=== PATIENT | male | born 1955 | race Caucasian/White ===

== ENCOUNTER → 2018-03-29 | Outpatient (CLI) | payer OTHER | END | disposition home or self-care (01) | LOC: LABWHC1 16:31 | PROVIDERS: ATTEND Family Medicine | DX: Z13.88 Encounter for screening for disorder due to exposure to contaminants (principal) | CPT/HCPCS: 36415; 83655 ==

== ENCOUNTER 2019-01-02 08:44 | Day surgery (SDC) | payer MEDICARE, OTHER ==
[2018-12-31 12:53] VITALS: BMI 35.9
[~2019-01-02 08:44] MED LIST: LACTATED RINGERS 1,000 ML IV SCH; LIDOCAINE 1% 20 ML VIAL (10MG/ML) FOR IV START INTRADERMA PRN
[2019-01-02 09:05] VITALS: RESP 16; TEMP 97.8
[2019-01-02] MEDS ORDERED: fentaNYL (PF) 50 MCG/ML 2 ML AMP ONE (09:30)
[2019-01-02] MEDS ORDERED: PROPOFOL 10 MG/ML 20 ML VIAL IV ONE (09:30)
[2019-01-02] MEDS ORDERED: LIDOCAINE 1% INJ 10MG/ML (20 ML MDV) ONE (09:30)
[2019-01-02 10:13] VITALS: PULSE 64
--- NOTE | 2019-01-02 10:21 | P.PCN ---
Date of Procedure: 01/02/19 Procedure(s) Performed: Procedure: 1. Esophagogastroduodenoscopy and biopsy. 2. Total colonoscopy. Preoperative diagnosis: Dysphagia and screening for colon cancer. Postoperative diagnosis: 1. Small sliding hiatal hernia with no obvious esophagitis or complicated reflux disease. 2. Mild gastritis and duodenitis. 3. Diffuse colon diverticulosis with no evidence of acute diverticulitis, strictures, polyps or cancer. Preparation: HalfLytely prep. Sedation: Was provided by anesthesia. Brief clinical history: The patient is a 63-year-old male who is scheduled for this evaluation because of intermittent dysphagia over the years. No history of acid reflux. These episodes have not been progressive and occur once a months or so. No other alarm symptoms. In addition, he is scheduled for screening for colon cancer age being his risk factor. Procedure: With the patient on his left lateral decubitus position and after informed consent and adequate sedation, I passed a Olympus-GIF H190 video upper endoscope through the cricopharyngeus down the esophagus. GE junction was around 38 cm from the incisors and there was a small sliding hiatal hernia but no obvious esophagitis or complicated reflux disease. The endoscope was then passed into the stomach which was insufflated with air and inspected in detail including the retroflex view in the cardia. There was mottling and erythema in the antrum but no ulcers or erosions. Pyloric channel did not show any ulcers. Duodenal bulb, post bulbar area and descending duodenum showed some erythema and minimal friability but no ulcers or erosions. I obtained biopsies from the duodenum, antrum and esophagus then the endoscope was withdrawn and I proceeded to perform the colonoscopy. The perianal area did not show any fissures or fistulas. There were no masses felt on digital rectal examination. The Olympus CFH 190L video colonoscope was then inserted in the rectum in the usual fashion and advanced to the cecum. There were multiple diverticular orifices seen scattered along the length of the bowel more on the left side with no evidence of acute diverticulitis or strictures. The mucosa appeared healthy. No polyps or tumors were seen. I retroflexed the endoscope in the rectum before the endoscope was withdrawn. The patient tolerated the procedure well. Plan: The patient was reassured. Discussed dietary measures. Will await biopsy results and make further plans based on his course and biopsy results. I will be happy to see in the office if his symptoms persist and pursue the workup of dysphagia which could be related to a motility disorder. For colon cancer screening, I recommended repeat exam in 10 years. He will follow up with you as planned.
[2019-01-02 10:31] VITALS: BP 125/72
== END 2019-01-02 10:46 | disposition home or self-care (01) ==
LOC: ORWHC2ENDO 08:44
DX: Z12.11 Encounter for screening for malignant neoplasm of colon (principal); K29.50 Unspecified chronic gastritis without bleeding; K21.0 Gastro-esophageal reflux disease with esophagitis; K44.9 Diaphragmatic hernia without obstruction or gangrene; K57.30 Diverticulosis of large intestine without perforation or abscess without bleeding; K29.80 Duodenitis without bleeding; R13.10 Dysphagia, unspecified; Z80.0 Family history of malignant neoplasm of digestive organs; J45.909 Unspecified asthma, uncomplicated; N40.0 Benign prostatic hyperplasia without lower urinary tract symptoms; E78.5 Hyperlipidemia, unspecified; Z79.899 Other long term (current) drug therapy; Z88.0 Allergy status to penicillin
CPT/HCPCS: 88305; 43239; J2001; J3010; J2704; G0105; 45378

== ENCOUNTER → 2019-03-31 | Outpatient (CLI) | payer MEDICARE, OTHER ==
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
== END | disposition home or self-care (01) ==
LOC: RADUSWWP 15:21
PROVIDERS: ATTEND Internal Medicine
DX: M79.662 Pain in left lower leg (principal)

== ENCOUNTER → 2021-03-25 | Outpatient (CLI) | payer MEDICARE ==
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
== END | disposition home or self-care (01) ==
LOC: RADXRWHC 12:10
PROVIDERS: ATTEND Internal Medicine
DX: S29.9XXA Unspecified injury of thorax, initial encounter (principal); V89.2XXA Person injured in unspecified motor-vehicle accident, traffic, initial encounter
CPT/HCPCS: 71046

== ENCOUNTER → 2023-01-01 | Outpatient (CLI) | payer MEDICARE ==
--- NOTE | 2023-01-01 09:19 | US ---
EXAMINATION TYPE: US liver DATE OF EXAM: 01/01/2023 COMPARISON: NONE CLINICAL HISTORY: R94.5 ABNORMAL LFT. Abnormal labs. No pain. TECHNIQUE: Multiple sonographic images of the right upper quadrant are obtained. FINDINGS: EXAM MEASUREMENTS: Liver Length: 18.2 cm Gallbladder Wall: 0.2 cm CBD: 0.7 cm Right Kidney: 8.8 x 3.1 x 4.1 cm INDUCTOR TESTER NOTES:limited visualization due to patient body habitus Pancreas: Obscured by bowel gas Liver: Enlarged in size. Echogenic and coarse in appearance. Gallbladder: wnl Evidence for sonographic Edwards's sign: neg CBD: wnl Right Kidney: Medial cystic appearing lesion - 6.1 x 4.9 x 4.4 cm IMPRESSION: 1. Hepatomegaly. Some moderate fatty infiltration is present. 2. Complex cystic area right kidney, follow-up is recommended
== END | disposition home or self-care (01) ==
LOC: RADUSWWP 07:14
PROVIDERS: ATTEND Internal Medicine
DX: K76.0 Fatty (change of) liver, not elsewhere classified (principal); R16.0 Hepatomegaly, not elsewhere classified; N28.1 Cyst of kidney, acquired; R94.5 Abnormal results of liver function studies
CPT/HCPCS: 76705

== ENCOUNTER → 2023-10-11 | Outpatient (CLI) | payer MEDICARE ==
--- NOTE | 2023-10-11 18:19 | US ---
EXAMINATION TYPE: US kidneys/renal and bladder DATE OF EXAM: 10/11/2023 COMPARISON: US 2022 CLINICAL INDICATION: Male, 68 years old with history of N28.1 CYST OF KIDNEY, ACQUIRED; EXAM MEASUREMENTS: Right Kidney: 8.2 x 4.0 x 3.9 cm Left Kidney: 9.3 x 6.4 x 5.8 cm Right Kidney: measures small in size, 5.2 x 4.2 x 3.6cm simple appearing cyst Left Kidney: wnl Bladder: outpouching seen along right posterior wall Bilateral Jets seen: yes Urinary bladder is sonolucent. The posterior wall is normal. IMPRESSION: 1. Right renal cyst
== END | disposition home or self-care (01) ==
LOC: RADUSWWP 15:30
PROVIDERS: ATTEND Internal Medicine
DX: N28.1 Cyst of kidney, acquired (principal)
CPT/HCPCS: 76770

== ENCOUNTER → 2025-02-04 | Outpatient (CLI) | payer MEDICARE ==
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
== END | disposition home or self-care (01) ==
LOC: RADXRMAIN 15:54
PROVIDERS: ATTEND Internal Medicine
DX: R05.9 Cough, unspecified (principal)
CPT/HCPCS: 71046